=== PATIENT | female | born 1940 | race Caucasian/White ===

== ENCOUNTER 2016-08-03 04:27 | Observation (INO) | payer MEDICARE, BC ==
[~2016-08-03] VITALS: Ht 157.5 cm; Wt 88.2 kg
[2016-08-03] VITALS (7 sets, daily range): BP systolic 130–160; BP diastolic 66–80; PULSE 66–81; RESP 16–24; TEMP 95.9–97.7; O2SAT 96–99; Ht 157.5 cm; Wt 88.2 kg
[~2016-08-03 04:27] MED LIST: ASPI-611 PO; CALC600T86 PO; DILT180C52 PO; FA/M1TAB3 PO; METO50TA5 PO; NEOM10DR7 OT; NIAC500T22 PO; OMEG500C7 PO; SERT50TA12 PO; SIMV20TA6 PO; TRAM-277 PO; TRIA1TAB10 PO
--- OUTSIDE RECORDS SUMMARY | 2016-08-03 04:32 | XMS REPORT | Referral Summary ---
Author Author [facility], [facility] Medicine Organization [facility] Address Unknown Phone Unavailable Care Team Providers Care Nurse Emergency Room Name Role Phone Kierra Grover Primary Care Physician [phone] Encounter VC Date(s): 05/01/16 - 05/01/16 [facility] [address] [place] [id number] Discharge Diagnosis: Asthma Discharge Diagnosis: Gastroesophageal reflux disease (disorder) Discharge Diagnosis: Acute URI Discharge Diagnosis: Chronic kidney disease (CKD) Discharge Diagnosis: SBE (subacute bacterial endocarditis) Discharge Diagnosis: S/P total hip arthroplasty Discharge Disposition: 01-Home or Self Care Attending Physician: Heath Grover MD Admitting Physician: Heath Grover MD Vital Signs Most recent to 1 oldest [Reference Range]: Peripheral Pulse 67 bpm Rate [60-100 bpm] (05/01/16 2:58 PM) Blood Pressure 140/60 mmHg [90-140/60-90 mmHg] (05/01/16 2:58 PM) SpO2 94 % (05/01/16 2:58 PM) Problem List Condition Effective Dates Status Health Status Informant Allergic Active rhinitis(Confirmed) Asthma(Confirmed) Resolved Backache Active (finding)(Confirmed) Benign essential Active hypertension (disorder)(Confirmed ) Bronchitis(Confirmed Resolved )1 Chickenpox(Confirmed Resolved ) Chronic back Active pain(Confirmed) Chronic kidney Active disease (CKD)(Confirmed) Depression(Confirmed Active ) Diabetes(Confirmed) Active ECG Active abnormal(Confirmed) left ganglion cyst Resolved of wrist(Confirmed) Gastroesophageal Active reflux disease (disorder)(Confirmed ) Gastroesophageal Resolved reflux(Confirmed) GERD(Confirmed) Resolved Bright red blood per Active rectum(Confirmed) Hypercholesterolemia Active (Confirmed) Hypertension(Confirm Resolved ed) Hypertension(Confirm Resolved ed) Elevated blood Active sugar(Confirmed) Meniscus tear of Resolved knee, bilateral(Confirmed) OA (osteoarthritis) Active of knee(Confirmed) Osteoarthritis(Confi Resolved rmed)2 Preop cardiovascular Active exam(Confirmed) Seborrheic Active keratosis(Confirmed) 1not spec acute/chronic 2site unspecified Allergies, Adverse Reactions, Alerts Substance Reaction Severity Status homatropine Active HYDROcodone Active levofloxacin Active sulfamethoxazole Active Medications amoxicillin 500 mg oral tablet See Instructions, Take 6 tabs prior to dental procedure and 3 tabs 6 hours after procedure., # 30 caps, 0 Refill(s), Pharmacy: [facility] #[id number], Take 6 tabs prior to dental procedure and 3 tabs 6 hours after procedure. Start Date: 05/01/16 Status: Ordered aspirin 81 mg, Oral, Headache, 0 Refill(s) Start Date: 03/22/14 Status: Ordered calcium citrate 1 tabs, Oral, Daily, 0 Refill(s) Start Date: 10/25/13 Status: Ordered Cartia XT 180 mg/24 hours oral capsule, extended release 360 mg 2 caps, Oral, Daily, Please make a ked check appt. for full refill., # 60 caps, 0 Refill(s), Pharmacy: [facility] #[id number] Start Date: 04/20/16 Status: Ordered Contour Next Strips Contour Next Strips, See Instructions, Patient checks blood glucose fasting and 2 hours after a meal three to four times per week for icd-10 E11.9, # 100 Each, 3 Refill(s), Pharmacy: [facility] #[id number], Patient checks blood glucose fasting and 2... Start Date: 01/17/16 Status: Ordered Fish Oil 2 caps, Oral, Daily, 0 Refill(s) Start Date: 10/25/13 Status: Ordered Metoprolol Tartrate 50 mg oral tablet 50 mg 1 tabs, Oral, BID, # 180 tabs, 1 Refill(s), Pharmacy: [facility] # [id number], 1 tabs Oral BID Start Date: 05/01/16 Status: Ordered Microlet Lancets Microlet Lancets, See Instructions, USe to check blood glucose fasting and 2 hours after a meal three to four days per week for icd-10 E11.9, # 100 Each, 3 Refill(s), Pharmacy: [facility] #[id number], USe to check blood glucose fasting and 2 hours a... Start Date: 01/17/16 Status: Ordered multivitamin 1 tabs, Oral, Daily, 0 Refill(s) Start Date: 10/25/13 Status: Ordered sertraline 50 mg oral tablet See Instructions, TAKE ONE TABLET BY MOUTH DAILY, # 90 tabs, eRx: [facility] #[id number] Start Date: 04/27/16 Status: Ordered simvastatin 20 mg oral tablet See Instructions, TAKE ONE TABLET BY MOUTH AT BEDTIME, # 90 tabs, eRx: [facility] #[id number], TAKE ONE TABLET BY MOUTH AT BEDTIME Start Date: 02/24/16 Status: Ordered simvastatin 20 mg oral tablet See Instructions, TAKE ONE TABLET BY MOUTH EVERY NIGHT AT BEDTIME, # 90 tabs, 1 Refill(s), Pharmacy: [facility] #[id number], TAKE ONE TABLET BY MOUTH EVERY NIGHT AT BEDTIME Start Date: 08/22/15 Status: Ordered Singulair 10 mg oral tablet 10 mg 1 tabs, Oral, Daily, # 60 tabs, 0 Refill(s), Pharmacy: [facility] # [id number], 1 tabs Oral Daily Start Date: 05/01/16 Status: Ordered traMADol 50 mg oral tablet 50 mg 1 tabs, Oral, q6hr, as needed for pain, Beti Hanna, # 75 tabs, 0 Refill(s) Start Date: 04/08/16 Status: Ordered triamterene-hydrochlorothiazide 37.5 mg-25 mg oral tablet 1 tabs, Oral, Daily, Please make med check appt. for full refill., # 30 tabs, 0 Refill(s), Pharmacy: [facility] #[id number] Start Date: 04/20/16 Status: Ordered Results Hematology Most recent to 1 oldest [Reference Range]: WBC [4.8-10.8 7.7 10*3/uL 10*3/uL] (05/01/16 3:20 PM) RBC [4.00-5.20] 4.42 (05/01/16 3:20 PM) Hgb [12.0-16.0 14.5 gm/dL gm/dL] (05/01/16 3:20 PM) Hct [37.0-47.0 %] 44.7 % (05/01/16 3:20 PM) MCV [82.0-99.0 fL] 101.1 fL *HI* (05/01/16 3:20 PM) MCH [27.0-32.0 pg] 32.8 pg *HI* (05/01/16 3:20 PM) MCHC [32.0-36.0 32.4 gm/dL gm/dL] (05/01/16 3:20 PM) RDW [11.5-14.5 %] 12.1 % (05/01/16 3:20 PM) Platelet [150-400 269 10*3/uL 10*3/uL] (05/01/16 3:20 PM) MPV [8.8-14.8 fL] 10.5 fL (05/01/16 3:20 PM) Immature 0.3 % Granulocytes (05/01/16 3:20 PM) [0.0-1.0 %] Neutrophils [51-75 54 % %] (05/01/16 3:20 PM) Lymphocytes [20-46 28 % %] (05/01/16 3:20 PM) Monocytes [4-11 %] 16 % *HI* (05/01/16 3:20 PM) Eosinophils [0-4 %] 2 % (05/01/16 3:20 PM) Basophils [0-2 %] 1 % (05/01/16 3:20 PM) Neutro Absolute 4.14 [1.90-7.00] (05/01/16 3:20 PM) Lymph Absolute 2.17 [0.80-3.30] (05/01/16 3:20 PM) Lynn Absolute 1.20 [0.30-1.00] *HI* (05/01/16 3:20 PM) Eos Absolute 0.13 [0.00-0.50] (05/01/16 3:20 PM) Baso Absolute 0.04 [0.00-0.20] (05/01/16 3:20 PM) Chemistry Most recent to 1 oldest [Reference Range]: Sodium Lvl [135-144 141 mEq/L mEq/L] (05/01/16 3:20 PM) Potassium Lvl 4.0 mEq/L [3.5-5.2 mEq/L] (05/01/16 3:20 PM) Chloride [99-111 100 mEq/L mEq/L] (05/01/16 3:20 PM) CO2 [22-31 mEq/L] 30 mEq/L (05/01/16 3:20 PM) AGAP [3-20] 11 (05/01/16 3:20 PM) BUN [10-20 mg/dL] 24 mg/dL *HI* (05/01/16 3:20 PM) Glucose Lvl [70-99 112 mg/dL mg/dL] *HI* (05/01/16 3:20 PM) Creatinine Lvl 1.27 mg/dL [0.57-1.11 mg/dL] *HI* (05/01/16 3:20 PM) eGFR [>60 mL/min] 41 mL/min 1 *ABN* (05/01/16 3:20 PM) Calcium Lvl 10.0 mg/dL [8.9-10.5 mg/dL] (05/01/16 3:20 PM) Albumin Lvl [3.4-4.8 4.2 gm/dL gm/dL] (05/01/16 3:20 PM) Total Protein 6.7 gm/dL [6.0-7.6 gm/dL] (05/01/16 3:20 PM) Globulin [1.8-4.0 2.5 gm/dL gm/dL] (05/01/16 3:20 PM) ALT [0-55 U/L] 19 U/L (05/01/16 3:20 PM) AST [5-34 U/L] 16 U/L (05/01/16 3:20 PM) Alk Phos [40-150 28 U/L U/L] *LOW* (05/01/16 3:20 PM) Bili Total [0.2-1.2 0.5 mg/dL mg/dL] (05/01/16 3:20 PM) Chol [0-199 mg/dL] 174 mg/dL (05/01/16 3:20 PM) Trig [0-149 mg/dL] 219 mg/dL *HI* (05/01/16 3:20 PM) HDL [40-84 mg/dL] 60 mg/dL (05/01/16 3:20 PM) LDL [0-130 mg/dL] 70 mg/dL (05/01/16 3:20 PM) VLDL Cholesterol 44 mg/dL [0-28 mg/dL] *HI* (05/01/16 3:20 PM) Cardiac Risk 2.9 [0.0-5.0] (05/01/16 3:20 PM) TSH with Reflex Free 1.15 T4 [0.35-4.94] (05/01/16 3:20 PM) Hgb A1c [4.1-5.6 %] 6.1 % *HI* (05/01/16 3:20 PM) eAvg Glucose 128.4 mg/dL (05/01/16 3:20 PM) 1Result Comment: Multiply eGFR results by 1.21 for race. Urinalysis Most recent to 1 oldest [Reference Range]: UA Color Yellow (05/01/16 3:35 PM) UA Appear Clear (05/01/16 3:35 PM) UA pH [5.0-8.0] 8.0 (05/01/16 3:35 PM) UA Leuk Est Negative [Negative] (05/01/16 3:35 PM) UA Nitrite Negative [Negative] (05/01/16 3:35 PM) UA Protein Negative [Negative] (05/01/16 3:35 PM) UA Glucose Negative [Negative] (05/01/16 3:35 PM) UA Ketones Negative [Negative] (05/01/16 3:35 PM) UA Urobilinogen 1.0 mg/dL [<1.0 mg/dL] (05/01/16 3:35 PM) UA Bili [Negative] Negative (05/01/16 3:35 PM) UA Blood [Negative] Negative (05/01/16 3:35 PM) UA Spec Grav 1.014 [1.003-1.030] (05/01/16 3:35 PM) Type Voided (05/01/16 3:35 PM) Immunizations Given and Recorded Vaccine Date Status Refusal Reason tetanus/diphth/pertuss (Tdap) adult/adol1 05/20/15 Recorded influenza virus vaccine, inactivated 01/08/15 Recorded influenza virus vaccine, inactivated 01/16/11 Recorded influenza virus vaccine, inactivated 02/02/08 Recorded 1Location History: given at [facility] Procedures Procedure Date Related Diagnosis Body Site Colonoscopy1 04/14/07 Vaginal Pap smear 12/07/01 Hysterectomy2 04/05/86 Arthroscopy Dilation and curettage Excision of ganglion cyst Tonsillectomy 1Diverticulosis and polyp showing hyperplastic polyp. Plan repeart colonoscopy in 10 years (04/24/2017) 2vag hyst for fibroids Social History Social History Type Response Smoking Status Never smoker Assessment and Plan Extracted from: Title: Ambulatory Patient Education Author: Heath Grover MD Date: Allergy Asthma, Adult Asthma is a recurring condition in which the airways tighten and narrow. Asthma can make it difficult to breathe. It can cause coughing, wheezing, and shortness of breath. Asthma episodes, also called asthma attacks, range from minor to life-threatening. Asthma cannot be cured, but medicines and lifestyle changes can help control it. CAUSES Asthma is believed to be caused by inherited (genetic) and environmental factors , but its exact cause is unknown. Asthma may be triggered by allergens, lung infections, or irritants in the air. Asthma triggers are different for each person. Common triggers include: Animal dander. Dust mites. Cockroaches. Pollen from trees or grass. Mold. Smoke. Air pollutants such as dust, household retail department supervisor, hair sprays, aerosol sprays, paint fumes, strong chemicals, or strong odors. Cold air, weather changes, and winds (which increase molds and pollens in the air). Strong emotional expressions such as crying or laughing hard. Stress. Certain medicines (such as aspirin) or types of drugs (such as beta- blockers). Sulfites in foods and drinks. Foods and drinks that may contain sulfites include dried fruit, potato chips, and sparkling grape juice. Infections or inflammatory conditions such as the flu, a cold, or an inflammation of the nasal membranes (rhinitis). Gastroesophageal reflux disease (GERD). Exercise or strenuous activity. SYMPTOMS Symptoms may occur immediately after asthma is triggered or many hours later. Symptoms include: Wheezing. Excessive nighttime or pneumatic tool repairer coughing. Frequent or severe coughing with a common cold. Chest tightness. Shortness of breath. DIAGNOSIS The diagnosis of asthma is made by a review of your medical history and a physical exam. Tests may also be performed. These may include: Lung function studies. These tests show how much air you breathe in and out. Allergy tests. Imaging tests such as X-rays. TREATMENT Asthma cannot be cured, but it can usually be controlled. Treatment involves identifying and avoiding your asthma triggers. It also involves medicines. There are 2 classes of medicine used for asthma treatment: Controller medicines. These prevent asthma symptoms from occurring. They are usually taken every day. Reliever or rescue medicines. These quickly relieve asthma symptoms. They are used as needed and provide short-term relief. Your health care provider will help you create an asthma action plan. An asthma action plan is a written plan for managing and treating your asthma attacks. It includes a list of your asthma triggers and how they may be avoided. It also includes information on when medicines should be taken and when their dosage should be changed. An action plan may also involve the use of a device called a peak flow meter. A peak flow meter measures how well the lungs are working. It helps you monitor your condition. HOME CARE INSTRUCTIONS Take medicines only as directed by your health care provider. Speak with your health care provider if you have questions about how or when to take the medicines. Use a peak flow meter as directed by your health care provider. Record and keep track of readings. Understand and use the action plan to help minimize or stop an asthma attack without needing to seek medical care. Control your home environment in the following ways to help prevent asthma attacks: Do not smoke. Avoid being exposed to secondhand smoke. Change your heating and air conditioning filter regularly. Limit your use of fireplaces and wood stoves. Get rid of pests (such as roaches and mice) and their droppings. Throw away plants if you see mold on them. Clean your floors and dust regularly. Use unscented cleaning products. Try to have someone else vacuum for you regularly. Stay out of rooms while they are being vacuumed and for a short while afterward. If you vacuum, use a dust mask from a hardware store, a double-layered or microfilter vacuum hand rug cleaner bag, or a vacuum hand rug cleaner with a HEPA filter. Replace carpet with wood, tile, or vinyl bel. Carpet can trap dander and dust. Use allergy-proof pillows, mattress covers, and box spring covers. Wash bed sheets and blankets every week in hot water and dry them in a dryer. Use blankets that are made of polyester or cotton. Clean bathrooms and ratna with bleach. If possible, have someone repaint the kwon in these rooms with mold-resistant paint. Keep out of the rooms that are being cleaned and painted. Wash hands frequently. SEEK MEDICAL CARE IF: You have wheezing, shortness of breath, or a cough even if taking medicine to prevent attacks. The colored mucus you cough up (sputum) is thicker than usual. Your sputum changes from clear or white to yellow, green, blanco, or bloody. You have any problems that may be related to the medicines you are taking (such as a rash, itching, swelling, or trouble breathing). You are using a reliever medicine more than 23 times per week. Your peak flow is still at 5079% of your personal best after following your action plan for 1 hour. You have a fever. SEEK IMMEDIATE MEDICAL CARE IF: You seem to be getting worse and are unresponsive to treatment during an asthma attack. You are short of breath even at rest. You get short of breath when doing very little physical activity. You have difficulty eating, drinking, or talking due to asthma symptoms. You develop chest pain. You develop a fast heartbeat. You have a bluish color to your lips or fingernails. You are light-headed, dizzy, or faint. Your peak flow is less than 50% of your personal best. MAKE SURE YOU: Understand these instructions. Will watch your condition. Will get help right away if you are not doing well or get worse. This information is not intended to replace advice given to you by your health care provider. Make sure you discuss any questions you have with your health care provider. Document Released: 03/22/2006 Document Revised: 04/12/2015 Document Reviewed: [employer] Interactive Patient Education 2016 [employer] No follow up information was provided. Extracted from: Title: Office Visit Note Author: Heath Grover MD Date: 05/01/16 Assessment/Plan Acute URI Amox 500mg po tid forfive days for uri. Asthma This issue was reviewed, appears stable, and current therapy continued except as mentioned. Appropriate lab was reviewed from the most recent appropriate entry and lab was ordered if needed in the cpoe/nursing orders, and follow up recommended generally in 90 days and no later then six months. Trial of singulair 10mg po daily. Call report. The patient has family members present who are agreeable with today's plan and have no additional concerns or requests. here. Chronic kidney disease (CKD) This issue was reviewed, appears stable, and current therapy continued except as mentioned. Appropriate lab was reviewed from the most recent appropriate entry and lab was ordered if needed in the cpoe/nursing orders, and follow up recommended generally in 90 days and no later then six months. Lab pending. Diabetes The patient was notified for the need for regular quarterly f/u of their diabetes. Further any pertinent medication, supplies, etc were refilled. Additionally, they are to have annual eye exams, foot exams, and regular care. Lab pending. Ordered: Hemoglobin A1c TSH with Reflex Free T4 Gastroesophageal reflux disease (disorder) This issue was reviewed, appears stable, and current therapy continued except as mentioned. Appropriate lab was reviewed from the most recent appropriate entry and lab was ordered if needed in the cpoe/nursing orders, and follow up recommended generally in 90 days and no later then six months. High cholesterol This issue was reviewed, appears stable, and current therapy continued except as mentioned. Appropriate lab was reviewed from the most recent appropriate entry and lab was ordered if needed in the cpoe/nursing orders, and follow up recommended generally in 90 days and no later then six months. Lab pending. Ordered: Lipid Panel HTN (hypertension) This issue was reviewed, appears stable, and current therapy continued except as mentioned. Appropriate lab was reviewed from the most recent appropriate entry and lab was ordered if needed in the cpoe/nursing orders, and follow up recommended generally in 90 days and no later then six months. The patient reports their blood pressure has been stable at home and is not having any significant or related problems. There has been no chest pain, chest pressure, soa/rivas. The patient had an elevated blood pressure reading and is to monitor their bp and call with a report if consistently > 140/90. Ordered: CBC w/ Differential Comprehensive Metabolic Panel Urinalysis with Culture if Indicated S/P total hip arthroplasty The patient's issue is nearly or completely resolved. There is no further issues or testing desired by them at this time. Amox 500mg po tid for five days. Will start one day prior to appt. Other options discussed but she is taking it for her URI already and wanted to use it through her dental appt. SBE (subacute bacterial endocarditis) See above. Normally Amox 500mg six tabs one hour before and three tabs six hours after dental visit.
--- OUTSIDE RECORDS SUMMARY | 2016-08-03 04:32 | XMS REPORT | Continuity of Care Document ---
Author Author [facility] Organization [facility] Address Unknown Phone Unavailable Care Team Providers Care Trial Lawyer Name Role Phone CLAUDE GILMORE MD Primary Care Physician [phone] Insurance Providers Guarantor Antoinette Calloway Address [address] [place] [address] CP Email [email or web address] Payer [employer] Plan 65 Policy Number [id number] Subscriber's Name Antoinette Calloway Relationship 18 Self Group Number [id number] Effective Date 11 Payer Medicare Policy Number [id number] Subscriber's Name Antoinette Calloway Relationship 18 Self Effective Date 05 Chief Complaint and Reason for Visit Chief Complaint Ear Pain/Injury Reason for Visit [id number] Problems Active Problems Medical Problem Onset Date Status Fibula fracture Unknown Acute Fibula fracture Unknown Acute Impacted cerumen, bilateral Unknown Acute Past Problems Medical Problem Onset Date Excessive cerumen in both ear canals Unknown Influenza vaccine administered Unknown Medications Current Home Medications Medication Dose Units Route Directions Days Qty Instructions Start Date Aspirin 81 Mg Tablet 81 Mg Oral Daily 05/07/09 Calcium Carbonate (Calcium) 600 Mg Tablet 1,200 Mg Oral Daily 05/15 Diltiazem Hcl (Cartia Xt) 180 Mg Cap.sr.24h 360 Mg Oral Daily 27/02 Fa/Mv,Ca,Fe,Min/Lycopene/Lut (Centrum Tablet) 1 Tab Tablet 1 Tab Oral Daily 05/07/09 Metoprolol Tartrate 50 Mg Tablet 50 Mg Oral Twice A Day 05/20/15 Neomycin/Polymyxin B Sulf/Hc (Ctjcqemv-Ltrnunyck-Dp Ear Susp) 10 Ml Drops.susp 4 Drop Otic Three Times A Day 7 Days [address] Avery Castrejon [facility] [address] [facility] [phone] 02/26/16 Niacinamide (Niacin) 500 Mg Tablet 500 Mg Oral Bedtime 05/20/15 [place]-3 Fatty Acids (Fish Oil) Unknown Strength Capsule Unknown Dose Oral Daily 05/20/15 Sertraline Hcl (Sertraline) 50 Mg Tablet 50 Mg Oral Daily Simvastatin 20 Mg Tablet 20 Mg Oral Bedtime 05/20/15 Tramadol Hcl 50 Mg Tablet 50 Mg Oral Twice A Day as needed for Pain 05/29/10 Triamterene/Hydrochlorothiazid (Triamterene-Hctz 37.5-25 Tb) 1 Tab Tablet 1 Tab Oral Daily 05/07/09 Past Home Medications Medication Directions Ordered Status Diltiazem Hcl (Taztia Xt) 360 Mg Capsule.sa, 360 Mg Oral Daily 05/07/09 Discontinued Multivits W-Fe,Other Min (Centrum) 236 Ml Liquid, 236 Ml Oral 05/07/09 Discontinued Social History Social History Problem Response Recorded Date/Time Onset Date Status Hx Substance Use No 05/20/2015 4:00pm Not Applicable Not Applicable Hx Alcohol Use No 05/20/2015 4:00pm Not Applicable Not Applicable Tobacco Usage none 05/20/2015 6:34pm Not Applicable Not Applicable Hospital Discharge Instructions No hospital discharge instructions. Plan of Care Discharge Date 03/06/16 4:30pm Disposition 01 DISCHARGED HOME, SELF-CARE Condition at Discharge Stable Instructions/Education Provided DI for Cerumen Impaction Prescriptions See Medication Section Referrals CLAUDE GILMORE MD Address: [address] [place] [address] [place] [phone] Additional Instructions/Education You may occasionally use Debrox or Cerumenex to soften and keep cerumen from obstructing ear canals. Functional Status No functional status results. Allergies, Adverse Reactions, Alerts Allergen Type Severity Reaction Status Last Updated benazepril HCl Adverse Reaction Intermediate SHAKINESS/ FEELS COLD Active 03/06/16 Sulfa (Sulfonamide Antibiotics) Allergy Unknown Active 03/06/16 Hydrocodone Allergy Unknown Active 03/06/16 Levofloxacin Adverse Reaction Intermediate SHAKINESS /FEELS COLD Active Immunizations Query Response on File Recorded Date/Time Hx Influenza Vaccination Y January 09, 2013 01/31/13 4:45pm Hx Pneumococcal Vaccination No 01/31/13 4:45pm Hx Influenza Vaccination Y January 09, 2013 01/31/13 4:45pm DTaP Vaccine History yes 03/06/16 4:13pm Influenza Vaccine Hx Yes 01/1803/06/16 4:13pm Tetanus Diptheria Vaccine History yes 03/06/16 4:13pm Tdap Vaccine Hx 05/20/15 05/20/15 7:13pm Vital Signs Acute Vital Signs Vital Response Date/Time Temperature (Fahrenheit) 98.2 deg F (96.8 - 99.1) 03/06/2016 4:11pm Temperature (Calculated Celsius) 36.16474 degrees C (36.0 - 37.3) 03/06/2016 4:11pm Pulse Rate (adult) 65 bpm (60 - 100) 03/06/2016 4:11pm Respiratory Rate 24 breaths/min (10 - 20) 02/26/2016 3:44pm O2 Sat by Pulse Oximetry 95 % (90 - 100) 03/06/2016 4:11pm Blood Pressure 129/60 mm Hg 03/06/2016 4:11pm Height (Feet) 5 feet 03/06/2016 4:11pm Height (Inches) 3.00 inches 03/06/2016 4:11pm Weight (Kilograms) 92.200 kg 03/06/2016 4:11pm Body Mass Index (BMI) 36.0 03/06/2016 4:11pm Results No known relevant diagnostic tests, laboratory data and/or discharge summary. Procedures No known history of procedures. Encounters Encounter Location Arrival/Admit Date Discharge/Depart Date Attending Provider Registered Emergency Room [facility] 03/06/16 4:05pm ERIC LARA APRN Registered Clinic [facility] 03/06/16 2:42pm [facility] Departed Emergency Room [facility] 02/26/16 3:29pm 02/26/16 4: 48pm ERIC LARA APRN Departed Emergency Room [facility] 02/04/16 4:13pm 02/04/16 4: 24pm RADHAMES MACE APRN Recent Diagnosis
--- OUTSIDE RECORDS SUMMARY | 2016-08-03 04:33 | XMS REPORT | Continuity of Care Document ---
Author Author [facility] Organization [facility] Address Unknown Phone Unavailable Allergies Medications Problems Procedures Results Encounters ACCT No. Visit Date/Time Discharge Status Pt. Type Provider Facility Loc./Unit Complaint [id number] 01/24/2013 09:21:00 01/24/2013 23 :59:59 CLS Outpatient
--- NOTE | 2016-08-03 04:40 | NUR ---
DR HALL AT BEDSIDE TO SEE PT.
[2016-08-03] MEDS ORDERED: NORMAL SALINE 1,000 ML IV ONE (04:52)
[2016-08-03 05:01] LABS: BASOPHILS % (AUTO) 0.2 % (0-2); EOSINOPHILS % (AUTO) 0.1 % (0-4); HCT - HEMATOCRIT 47.2 % (36-46); HGB - HEMOGLOBIN 16.2 GM/DL (12-16); IMMATURE GRANULOCYTE # (AUTO) 0.02 T/MM3 (0.00-0.03); IMMATURE GRANULOCYTE % (AUTO) 0.2 % (0.0-0.5); LYMPHOCYTES # (AUTO) 1.3 T/MM3 (1-4.8); LYMPHOCYTES % (AUTO) 14.6 % (23-45); MEAN CORPUSCULAR HGB 33.5 UUG (26-34); MEAN CORPUSCULAR HGB CONC(MCHC 34.3 GM/DL (31-37); MEAN CORPUSCULAR VOLUME 97.5 UM3 (80-100); MEAN PLATELET VOLUME 10.9 UM3 (9.4-12.4); MONOCYTES # (AUTO) 0.8 T/MM3 (0-0.8); MONOCYTES % (AUTO) 8.9 % (0-9.0); NEUTROPHILS #(AUTO)-ABSOLUTE 6.9 T/MM3 (1.8-7.7); RED BLOOD COUNT 4.84 M/MM3 (4.00-5.20); WBC - WHITE BLOOD COUNT 9.1 T/MM3 (4.5-11.0)
--- NOTE | 2016-08-03 05:03 | NUR ---
IVL STARTED BY MIKAYLA VERDUGO IN FIRST ATTEMPT TO RIGHT HAND. BLOOD DRAWN FROM SITE AND TAKEN TO LAB.
--- NOTE | 2016-08-03 05:06 | ERPDOC ---
Departure Disposition Decision Date: August 03, 2016 Disposition Decision Time: 06:14 Disposition: 01 DISCHARGED HOME, SELF-CARE Impression Impression Impression: Primary Impression: GI bleed Severity: Moderate Condition: Stable Seen By: Physician only Referrals: CLAUDE GILMORE MD (PCP/Family) Problems/Meds/Labs Reviewed?: Yes Medications reviewed and manag: Yes Follow up care ordered?: Yes Mental Status: Alert HPI - Abdominal Pain General Chief Complaint: Nausea,Vomiting,Diarrhea Stated Complaint: DIRARRHEA Time Seen by Provider: 04:50 HPI - Abdominal Pain Initial Comments 76-year-old female presents with diarrhea for 2 days. She went out to eat with her Wednesday evening. They both had the same meal, but she began having diarrhea at approximately 3:30 AM the next morning. He has not been ill at all. She did throw up once with the first episode of diarrhea, but has not vomited since that time. She states she's been having diarrhea approximately every 2 hours. No fever. She has been becoming more weak and fatigued the last two days. She became winded just walking back to the room. Allergies: Coded Allergies: Sulfa (Sulfonamide Antibiotics) (Verified Allergy, Unknown, 08/03/16) hydrocodone (Verified Allergy, Unknown, 08/03/16) benazepril HCl (Verified Adverse Reaction, Intermediate, SHAKINESS/ FEELS COLD, 08/03/16) levofloxacin (Verified Adverse Reaction, Intermediate, SHAKINESS /FEELS COLD, 08/03/16) Past History Past Medical History Metabolic: hypertension Psychological: depression Surgical History General: tonsils Reproductive/: D&C, hysterectomy Joint: knee Family History Family PMH: FOUND: asthma, diabetes Vaccines Hx Influenza Vaccination: Yes (January 09, 2013) Hx Pneumococcal Vaccination: No Social History Smoking Status: Never smoker Substance Use Type: does not use Alcohol Intake: none Record Review Pertinent history updated: Yes Review of Systems Cardiovascular Cardiac: see HPI Pulmonary Respiratory: see HPI GI Upper Abdomen: see HPI General: see HPI Musculoskeletal General: see HPI Physical Exam General General Nourishment: appears stated age, adult, obese Distress Description Shortness of breath, Vitals and Pain First Documented Vital Signs Date Time Temp Pulse Resp B/P Pulse Ox O2 Delivery O2 Flow Rate FiO2 08/03/16 04:28 96.9 98 20 136/68 96 Room Air Weight: Kilograms: Height (feet): 5 Height (inches): 3.00 Triage Pain Scale: Normal Exams: Head: Normocephalic w/o trauma Eyes: Pupils are PERRLA w/ EOMI, No scleral icterus, irritation, or foreign bodies noted Chest/Resp: Clear all land, with good airflow, and symmetry bilaterally CV: Regular rate and rhythm, without murmur or gallop, Pulses 2+ all extremities, capillary refill, <2 seconds all ext., no pedal edema noted Abdomen: Bowel sounds positive, soft, non-tender, non-distended, no hepatosplenomegaly, masses or bruits noted Neurologic: Patient is alert, and oriented, cranial nerves, motor/sensory/ cerebellar, exams w/o gross deficits, to observation Psychiatric: Patient exhibits, appropriate attention, emotion and affect Differential Diagnoses Considering: C-Difficule Colitis, Diverticulitis, Food Poisoning, Gastroenteritis, Intussusception, Ischemic Bowel, Pancreatitis, Rotavirus, Cecal Volvulus Progress Results/Orders Orders Procedure Category Date Status Time Cmp - Comprehensive LAB 08/03/16 Complete Metabolic 04:52 Cbc W/Auto LAB 08/03/16 Complete Diff-Reflex Manual 04:52 Lipase LAB 08/03/16 Complete 04:52 Ua, Dip Wreflex LAB 08/03/16 Logged Microsc & Nurse Chemical Dependency 04:52 Occult Blood, Stool LAB 08/03/16 Complete 04:52 Gi Panel, Pcr, Stool LAB 08/03/16 In Process 04:52 Kub W/Upright RAD 08/03/16 Taken 04:52 Iv Lock (Ed Only) EDM 08/03/16 Transmitted 04:52 Normal Saline (Normal PHA 08/03/16 Complete Saline Iv) 04:52 Ed Infections EDM 08/03/16 Transmitted Precautions 04:52 Troponin I W LAB 08/03/16 In Process Hemolysis Index EKG EKG 08/03/16 Logged Diltiazem Cd PHA 08/03/16 Logged (Cardizem Cd) 09:00 Metoprolol Tartrate PHA 08/03/16 Logged (Lopressor) 09:00 Lab Results Laboratory Tests Test 08/03/16 04:52 08/03/16 05:08 08/03/16 05:10 White Blood Count 9.1T/MM3 Red Blood Count 4.84M/MM3 Hemoglobin 16.2GM/DL Hematocrit 47.2% Mean Corpuscular Volume 97.5UM3 Mean Corpuscular Hemoglobin 33.5UUG Mean Corpuscular Hemoglobin Concent 34.3GM/DL RDW Standard Deviation 44.1FL Platelet Count 175T/MM3 Mean Platelet Volume 10.9UM3 Immature Granulocyte % (Auto) 0.2% Neutrophils (%) (Auto) 76.0% Lymphocytes (%) (Auto) 14.6% Monocytes (%) (Auto) 8.9% Eosinophils (%) (Auto) 0.1% Basophils (%) (Auto) 0.2% Absolute Immature Granulocyte (auto 0.02T/MM3 Absolute Neutrophils (auto) 6.9T/MM3 Absolute Lymphocytes (auto) 1.3T/MM3 Absolute Monocytes (auto) 0.8T/MM3 Absolute Eosinophils (auto) 0.0T/MM3 Absolute Basophils (auto) 0.0T/MM3 Turbidity < 20 Sodium Level 139MEQ/L Potassium Level 3.2MEQ/L Chloride Level 100MEQ/L Carbon Dioxide Level 19MEQ/L Anion Gap 20MEQ/L Blood Urea Nitrogen 22.0MG/DL Creatinine 1.2MG/DL Glomerular Filtration Rate Calc 44 BUN/Creatinine Ratio 18RATIO Glucose Level 143MG/DL Calculated Osmolality 273MOSM/KG Calcium Level 9.9MG/DL Total Bilirubin 0.70MG/DL Icterus Index < 2 Aspartate Amino Transf (AST/SGOT) 36U/L Alanine Aminotransferase (ALT/SGPT) 51U/L Alkaline Phosphatase 36U/L Troponin I Pending Total Protein 8.1G/DL Albumin 4.4G/DL Globulin 3.7G/DL Albumin/Globulin Ratio 1.2RATIO Lipase 176U/L Chemistry Specimen Hemolysis Pending Stool Occult Blood Positive Stool Cyclospora species Detection Pending Stool Rotavirus A PCR Pending Stool Adenovirus (PCR) Pending Stool Astrovirus (PCR) Pending Stool Campylobacter PCR Pending Stool C. difficile Toxin (PCR) Pending Stool Cryptosporidium PCR Pending Stool E. coli Shiga Toxins Pending Stool E coli O157 PCR Pending Stool Enterotoxigenic Ecoli PCR Pending Stool Enteropathogenic E. coli (PCR Pending Stool Enteroaggregative E. coli PCR Pending Stool Entamoeba (PCR) Pending Stool Giardia Lamblia PCR Pending Stool Salmonella PCR Pending Stool Sapovirus (PCR) Pending Stool Plesiomonas shigelloides PCR Pending Stool Shigella/EIEC (PCR) Pending Stool Yersinia enterocolitica (PCR) Pending Stool Vibrio (PCR) Pending Stool Vibrio cholera (PCR) Pending Stool Norovirus GI/GII PCR Pending Medications Current ED Medications Sodium Chloride (Normal Saline IV) 1,000 ml @ 1,000 mls/hr Q1H ONCE IV Last administered on 08/03/16t 05:18; Start 08/03/16 at 04:52; Stop 08/03/16 at 05:51; Status DC Diltiazem HCl (Cardizem Cd) 360 mg DAILY PO ; Start 08/03/16 at 09:00; Status UNV Metoprolol Tartrate (Lopressor) 50 mg BID PO ; Start 08/03/16 at 09:00; Status UNV Progress Progress Pt has hct which is slightly elevated but also has guiac positive stool. She becomes so easily winded and has elevated pulse. I expect that hct will drop as pt is hydrated. She will need follow up hct and ivf to rehydrate. Spoke with Dr Cowan who agreed to admit her to obs for hydration and follow. PARAS HALL MD August 03, 2016 05:06
[2016-08-03 05:08] LABS: ALBUMIN 4.4 G/DL (3.5-5.0); ALBUMIN/GLOBULIN RATIO 1.2 RATIO (1.1-2.2); ALKALINE PHOSPHATASE 36 U/L (38-126); ALT (SGPT) 51 U/L (9-52); ANION GAP 20 MEQ/L (5-15); AST (SGOT) 36 U/L (14-36); BUN/CREATININE RATIO 18 RATIO (6-26); CALCIUM 9.9 MG/DL (8.4-10.2); CHLORIDE 100 MEQ/L (98-107); CO2 - CARBON DIOXIDE 19 MEQ/L (22-30); CREATININE 1.2 MG/DL (0.7-1.2); GLOMERULAR FILTRATION RATE 44; GLUCOSE 143 MG/DL (65-110); LIPASE 176 U/L (23-300); POTASSIUM 3.2 MEQ/L (3.6-5); SODIUM 139 MEQ/L (134-144); TOTAL PROTEIN 8.1 G/DL (6.3-8.2)
--- NOTE | 2016-08-03 05:10 | NUR ---
BATHROOM PT ASSISTED TO BATHROOM FOR BM. STOOL SAMPLE COLLECTED AND TAKEN TO LAB.
[2016-08-03] MEDS ORDERED: MONTELUKAST (05:12)
[2016-08-03] MEDS ORDERED: FISH OIL (05:12)
--- OUTSIDE RECORDS SUMMARY | 2016-08-03 05:18 | XMS REPORT | Continuity of Care Document ---
Author Author [facility] Organization [facility] Address Unknown Phone Unavailable Allergies Medications Problems Procedures Results Encounters ACCT No. Visit Date/Time Discharge Status Pt. Type Provider Facility Loc./Unit Complaint [id number] 01/24/2013 09:21:00 01/24/2013 23 :59:59 CLS Outpatient
--- NOTE | 2016-08-03 05:30 | NUR ---
XRY PT TO XRY AT THIS TIME.
--- NOTE | 2016-08-03 05:40 | NUR ---
RETURN PT RETURNS TO EX 2 FROM RAD.
--- NOTE | 2016-08-03 06:05 | NUR ---
TELE HOSPITALIST ON TALKING WITH PT AT THIS TIME.
--- OUTSIDE RECORDS SUMMARY | 2016-08-03 06:10 | XMS REPORT | Continuity of Care Document ---
Author Author [facility] Organization [facility] Address Unknown Phone Unavailable Allergies Medications Problems Procedures Results Encounters ACCT No. Visit Date/Time Discharge Status Pt. Type Provider Facility Loc./Unit Complaint [id number] 01/24/2013 09:21:00 01/24/2013 23 :59:59 CLS Outpatient
[2016-08-03] MEDS ORDERED: ONDANSETRON 4mg/2ml INJECTION IV PRN (06:15)
--- NOTE | 2016-08-03 06:21 | NUR ---
REPORT CALLED TO MIKAYLA SEWELL ON MEDICAL. PT GOING TO RM 140.
--- NOTE | 2016-08-03 06:23 | NUR ---
ADMIT PT WILL BE TAKEN OUT TO RM 140 IN APPROX 10 MINUTES. CARE SIGNED OFF AT THIS TIME.
--- NOTE | 2016-08-03 06:31 | HPPDOC ---
DWIGHT MOREL MD 08/03/16 0624: HPI - Adult Date DATE: 08/03/16 TIME: 06:20 General Chief Complaint: diarrhea and weakness History of Present Illness Please note that the patient was seen via telemedicine with nursing assistance on 08/03/2016. Mrs. Sandhu is a very pleasant 76yo woman with h/o HTN, DM2 diet controlled, dyslipidemia, hyst, but no CAD or CVAs who lives independently with her and had onset of diarrheal illness 07/31/2016. Emesis once with stools q2 hours with dark stool now but also took some pepto bismol and has a h/o hemorrhoids. Abd pain, crampy, with improved somewhat now. No fevers or chills, but progressively weak and cannot effectively walk with nearly passing out in the ED. has eaten the same things. No recent medication changes or antibiotics. No ENT symptoms, sob or cough. Past Medical History Past Medical History Patient's Medical History: (1) HTN (hypertension) (2) DM2 (diabetes mellitus, type 2) (3) Dyslipidemia Surgical History Patient's Surgical History: hyst Current Medications Home Meds Reported Medications [Montelukast] No Conflict Check 08/03/16 [Fish Oil] No Conflict Check 08/03/16 Franklin-3 Fatty Acids (Fish Oil) Unknown Strength Capsule, PO DAILY 05/20/15 Niacinamide (Niacin) 500 Mg Tablet, 500 MG PO HS 05/20/15 Simvastatin (Simvastatin) 20 Mg Tablet, 20 MG PO HS 05/20/15 Sertraline (Sertraline) 50 Mg Tablet, 50 MG PO DAILY 05/20/15 Metoprolol Tartrate (Metoprolol Tartrate) 50 Mg Tablet, 50 MG PO BID 05/20/15 Diltiazem Hcl (Cartia Xt) 180 Mg Cap.sr.24h, 360 MG PO DAILY 05/30/10 Tramadol Hcl (Tramadol Hcl) 50 Mg Tablet, 50 MG PO BID Y for PAIN 05/29/10 Fa/Mv,Ca,Fe,Min/Lycopene/Lut (Centrum Tablet) 1 Tab Tablet, 1 TAB PO DAILY 05/07/09 Calcium Carbonate (Calcium) 600 Mg Tablet, 1200 MG PO DAILY 05/07/09 Aspirin (Aspirin) 81 Mg Tablet, 81 MG PO DAILY 05/07/09 Triamterene/Hydrochlorothiazid (Triamterene-Hctz 37.5-25 Tb) 1 Tab Tablet, 1 TAB PO DAILY 05/07/09 Discontinued Scripts Neomycin/Polymyxin B Sulf/Hc (Tqmqjbui-Uxgmodgip-Cn Ear Susp) 10 Ml Drops.susp, 4 DROP OT TID for 7 Days, #10 ML [address] Avery Castrejon [employer]st [facility] [address] [place] [address] Prov:ERIC LARA [employer] DIRECTOR 02/26/16 Allergies: Coded Allergies: Sulfa (Sulfonamide Antibiotics) (Verified Allergy, Unknown, 08/03/16) hydrocodone (Verified Allergy, Unknown, 08/03/16) benazepril HCl (Verified Adverse Reaction, Intermediate, SHAKINESS/ FEELS COLD, 08/03/16) levofloxacin (Verified Adverse Reaction, Intermediate, SHAKINESS /FEELS COLD, 08/03/16) Family History Family History: ather of CVA, mother at 95 with old age/?PNA Social History Smoking Status: Never smoker Substance Use Type: does not use Alcohol Intake: none Marital Status: Sexuality: male partner Housing: house Current Occupational Status: retired Advance Directives: Yes Full Code Review of Systems Unable to Obtain Comments 10+ neg or as mentioned in HPI Physical Exam General General Nourishment: well nourished, obese, apparent age General Body Habitus: well groomed Vital Signs Vital Signs Date Time Temp Pulse Resp B/P Pulse Ox O2 Delivery O2 Flow Rate FiO2 08/03/16 06:19 90 18 149/68 100 Room Air 08/03/16 04:28 96.9 Height (Feet): 5 Height (Inches): 3.00 Telemetry Rhythm: Sinus Rhythm Eyes Brief: FOUND: EOMI Respiratory Brief: FOUND: equal bilaterally, NOT FOUND: wheezes Cardiovascular (brief) Cardiac Brief: FOUND: regular rate, regular rhythm, NOT FOUND: pedal edema Capillary Refill: <2 sec Abdomen (brief) Comments NT, hyperactive BS and soft. See ED staff note as well. Integumentary (brief) Integumentary Brief: FOUND: pink Neurologic (brief) Comments nonfocal with no lateralizing signs Neurologic RN Documented GCS Eye Opening: Verbal: Motor: Total: Psychiatric (brief) FOUND: alert, normal affect, oriented Laboratory Laboratory Tests Test 08/03/16 04:52 08/03/16 05:08 08/03/16 05:10 White Blood Count 9.1T/MM3 Red Blood Count 4.84M/MM3 Hemoglobin 16.2GM/DL Hematocrit 47.2% Mean Corpuscular Volume 97.5UM3 Mean Corpuscular Hemoglobin 33.5UUG Mean Corpuscular Hemoglobin Concent 34.3GM/DL RDW Standard Deviation 44.1FL Platelet Count 175T/MM3 Mean Platelet Volume 10.9UM3 Immature Granulocyte % (Auto) 0.2% Neutrophils (%) (Auto) 76.0% Lymphocytes (%) (Auto) 14.6% Monocytes (%) (Auto) 8.9% Eosinophils (%) (Auto) 0.1% Basophils (%) (Auto) 0.2% Absolute Immature Granulocyte (auto 0.02T/MM3 Absolute Neutrophils (auto) 6.9T/MM3 Absolute Lymphocytes (auto) 1.3T/MM3 Absolute Monocytes (auto) 0.8T/MM3 Absolute Eosinophils (auto) 0.0T/MM3 Absolute Basophils (auto) 0.0T/MM3 Turbidity < 20 Sodium Level 139MEQ/L Potassium Level 3.2MEQ/L Chloride Level 100MEQ/L Carbon Dioxide Level 19MEQ/L Anion Gap 20MEQ/L Blood Urea Nitrogen 22.0MG/DL Creatinine 1.2MG/DL Glomerular Filtration Rate Calc 44 BUN/Creatinine Ratio 18RATIO Glucose Level 143MG/DL Calculated Osmolality 273MOSM/KG Calcium Level 9.9MG/DL Total Bilirubin 0.70MG/DL Icterus Index < 2 Aspartate Amino Transf (AST/SGOT) 36U/L Alanine Aminotransferase (ALT/SGPT) 51U/L Alkaline Phosphatase 36U/L Troponin I < 0.012ng/ml Total Protein 8.1G/DL Albumin 4.4G/DL Globulin 3.7G/DL Albumin/Globulin Ratio 1.2RATIO Lipase 176U/L Chemistry Specimen Hemolysis < 15 Stool Occult Blood Positive Assessment & Plan Problems: (1) Diarrhea Status: Acute Qualifiers: Diarrhea type: infectious Qualified Codes: A09 - Infectious gastroenteritis and colitis, unspecified Assessment & Plan: full admission and start Rocephin as flouroquinolone allergy. Concern for Salmonella et all with stool studies and probiotic start. Agressive IVF and check labs again at 1100 with lactate. Clear liquids only. (2) Heme positive stool Assessment & Plan: BUN elevated but prerenal. PPI and montitor with hgb at 1100. Hemorrhoids et al. (3) Hypokalemia Status: Acute Assessment & Plan: IV supp (4) Obesity (5) DM2 (diabetes mellitus, type 2) Status: Chronic (6) HTN (hypertension) Status: Chronic Assessment & Plan: hold diuretic and continue other (7) Dyslipidemia Status: Chronic Assessment & Plan: This patient is to be admitted to inpatient services. The patient is medically appropriate and meets medical necessity for inpatient admission in accordance with CMS section 42 C.F.R 412.3. The patient is reasonable expected to be discharged or transferred to a hospital within 96 hours after inpatient admission. I reasonable expect the patient will require inpatient services that span a period of time over two midnights. My rationale for determining inpatient admission necessary is noted below. Additional documentation will be found in the progress note. Treatment plan required inpatient setting; care in an outpatient setting would have threatened the patient's safety or health. Treatment plan required clinical-monitoring, treatments, medications and procedures that required an inpatient setting. Unstable medical condition: clinical signs and symptoms present that were significantly above or below those of normal range for the patient, and were such that further monitoring and evaluation was medically necessary. DVT Prophylaxis: SCD'S Code Status Full Code Hospital Course Summary Disclaimer The hospital course summary below is not to be considered part of the above Progress Note. CAROLE STAUFFER MD 08/03/16 0835: Past Medical History Current Medications Home Meds Reported Medications [Montelukast] No Conflict Check 08/03/16 [Fish Oil] No Conflict Check 08/03/16 Franklin-3 Fatty Acids (Fish Oil) Unknown Strength Capsule, PO DAILY 05/20/15 Niacinamide (Niacin) 500 Mg Tablet, 500 MG PO HS 05/20/15 Simvastatin (Simvastatin) 20 Mg Tablet, 20 MG PO HS 05/20/15 Sertraline (Sertraline) 50 Mg Tablet, 50 MG PO DAILY 05/20/15 Metoprolol Tartrate (Metoprolol Tartrate) 50 Mg Tablet, 50 MG PO BID 05/20/15 Diltiazem Hcl (Cartia Xt) 180 Mg Cap.sr.24h, 360 MG PO DAILY 05/30/10 Tramadol Hcl (Tramadol Hcl) 50 Mg Tablet, 50 MG PO BID Y for PAIN 05/29/10 Fa/Mv,Ca,Fe,Min/Lycopene/Lut (Centrum Tablet) 1 Tab Tablet, 1 TAB PO DAILY 05/07/09 Calcium Carbonate (Calcium) 600 Mg Tablet, 1200 MG PO DAILY 05/07/09 Aspirin (Aspirin) 81 Mg Tablet, 81 MG PO DAILY 05/07/09 Triamterene/Hydrochlorothiazid (Triamterene-Hctz 37.5-25 Tb) 1 Tab Tablet, 1 TAB PO DAILY 05/07/09 Discontinued Scripts Neomycin/Polymyxin B Sulf/Hc (Nckkqrgb-Vnvkcnslq-Hc Ear Susp) 10 Ml Drops.susp, 4 DROP OT TID for 7 Days, #10 ML [address] Avery Castrejon [employer] Analyst [facility] [address] [facility] [phone] Prov:ERIC LARA [employer] DIRECTOR 02/26/16 Allergies: Coded Allergies: Sulfa (Sulfonamide Antibiotics) (Verified Allergy, Unknown, 08/03/16) hydrocodone (Verified Allergy, Unknown, 08/03/16) benazepril HCl (Verified Adverse Reaction, Intermediate, SHAKINESS/ FEELS COLD, 08/03/16) levofloxacin (Verified Adverse Reaction, Intermediate, SHAKINESS /FEELS COLD, 08/03/16) Assessment & Plan Problems: (1) Diarrhea Status: Acute Qualifiers: Diarrhea type: infectious Qualified Codes: A09 - Infectious gastroenteritis and colitis, unspecified Assessment & Plan: full admission and start Rocephin as flouroquinolone allergy. Concern for Salmonella et all with stool studies and probiotic start. Agressive IVF and check labs again at 1100 with lactate. Clear liquids only. (2) Heme positive stool Assessment & Plan: BUN elevated but prerenal. PPI and montitor with hgb at 1100. Hemorrhoids et al. (3) Hypokalemia Status: Acute Assessment & Plan: IV supp (4) Obesity (5) DM2 (diabetes mellitus, type 2) Status: Chronic (6) HTN (hypertension) Status: Chronic Assessment & Plan: hold diuretic and continue other (7) Dyslipidemia Status: Chronic Assessment & Plan: This patient is to be admitted to inpatient services. The patient is medically appropriate and meets medical necessity for inpatient admission in accordance with CMS section 42 C.F.R 412.3. The patient is reasonable expected to be discharged or transferred to a hospital within 96 hours after inpatient admission. I reasonable expect the patient will require inpatient services that span a period of time over two midnights. My rationale for determining inpatient admission necessary is noted below. Additional documentation will be found in the progress note. Treatment plan required inpatient setting; care in an outpatient setting would have threatened the patient's safety or health. Treatment plan required clinical-monitoring, treatments, medications and procedures that required an inpatient setting. Unstable medical condition: clinical signs and symptoms present that were significantly above or below those of normal range for the patient, and were such that further monitoring and evaluation was medically necessary. This is a 76-year-old female presents to the hospital with diarrhea that has been progressing for roughly 48 hours. States that she feels horrible. Has not been able eat or drink anything and keep it down. Does not recall doing anything different from normal. States that her has no symptoms. She denies any specific abdominal pain. States the vomiting and diarrhea started roughly at the same time. Denies fevers. Agree with the above assessment and plan. We will add Flagyl to her antibiotic regimen. If there is no improvement we will obtain a CAT scan to further evaluate for potential colitis. Will continue a clear liquid diet. Will continue her outpatient medications. Continue IV fluids. DWIGHT MOREL MD August 03, 2016 06:24 CAROLE STAUFFER MD August 03, 2016 08:35
--- NOTE | 2016-08-03 06:40 | NUR ---
TRANSPORT PER CART ACCOMPANIED BY RN TO RM 140. TOLERATED ACTIVITY WELL. STOOD TO TRANSFER. SOA WITH ACTIVITY. CARE ASSUMED BY DONATO DEGROOT
[2016-08-03] MEDS ORDERED: PANTOPRAZOLE 40 MG TABLET PO ONE (06:45)
[2016-08-03] MEDS: NS KCL 20 MEQ 1,000 ML IV SCH ×4 (07:26→23:51)
[2016-08-03 08:31] LABS: BLOOD, URINE 1+ (NEGATIVE); COLOR,URINE YELLOW (YELLOW); LEUKOCYTE ESTERASE ,URINE NEGATIVE (NEGATIVE); NITRITE,URINE POSITIVE (NEGATIVE); UROBILINOGEN,URINE 0.2 EU/DL (NORMAL)
--- NOTE | 2016-08-03 08:31 | DI ---
EXAM: KUB W/UPRIGHT DATE: 08/03/2016 4:52 AM ENCOUNTER: Initial INDICATION: ITS.REASON: abd pain COMPARISON: 07/17/2010 Technique: Upright and supine AP abdominal radiographs were obtained. Findings: Non-obstructive bowel gas pattern. Mild colonic gas and stool. No intraperitoneal free air. 7 mm left renal stone, not significantly changed from 2010. No acute osseous abnormality identified. Degenerative spondylosis of the visualized spine. The visualized lung bases appear clear. Impression: 1. Mild colonic gas and stool with a nonobstructive bowel gas pattern. 2. 7 mm left renal stone, no significant change since 2010. .
[2016-08-03 08:47] LABS: RBC,URINE 0-1 /HPF (0-3)
[2016-08-03 08:48] LABS: BACTERIA,URINE 3+ (NEGATIVE); HYALINE CASTS, URINE 0-1 /LPF
[2016-08-03] MEDS ORDERED: CEFTRIAXONE 1 G in NORMAL SALINE 100 ML IV SCH (09:00)
[2016-08-03] MEDS ORDERED: CEFTRIAXONE I.V. (ER USE ONLY) 1 G in NORMAL SALINE 100 ML IV SCH (09:00)
[2016-08-03] MEDS ORDERED: AZITHROMYCIN 500 MG in NORMAL SALINE 250 ML IV SCH (09:30)
[2016-08-03] MEDS: DILTIAZEM CD 360 MG PO SCH (09:41)
[2016-08-03] MEDS: LACTOBACILLUS (15B cfu) CAPSULE PO SCH ×2 (09:42→18:34)
[2016-08-03 11:24] LABS: HGB - HEMOGLOBIN 14.5 GM/DL (12-16)
[2016-08-03 11:34] LABS: LACTATE - LACTIC ACID 1.3 MMOL/L (0.6-2.2)
[2016-08-03 11:37] LABS: ANION GAP 15 MEQ/L (5-15); BUN/CREATININE RATIO 19 RATIO (6-26); CALCIUM 9.1 MG/DL (8.4-10.2); CHLORIDE 103 MEQ/L (98-107); CO2 - CARBON DIOXIDE 24 MEQ/L (22-30); CREATININE 1.1 MG/DL (0.7-1.2); GLOMERULAR FILTRATION RATE 48; GLUCOSE 167 MG/DL (65-110); MAGNESIUM 1.7 MG/DL (1.6-2.3); POTASSIUM 3.1 MEQ/L (3.6-5); SODIUM 142 MEQ/L (134-144)
[2016-08-03] MEDS ORDERED: PNEUMOCOCCAL VAC. ADMIN. CHARGE INJ ONE (15:00)
[2016-08-03] MEDS ORDERED: PNEUMOCOCCAL 13 VACCINE 0.5 ML SYRINGE IM ONE (15:00)
[2016-08-03] MEDS ORDERED: BIOT1CAP3 (18:41)
--- NOTE | 2016-08-03 19:20 | NUR ---
SHIFT SUMMARY PT ALERT AND ORIENTED X3. PT ON RA, DENIES SOA. PT DENIES PAIN, DENIES N/V AT THIS TIME. UP WITH STAND BY ASSIST, STEADY ON FEET. IVF INFUSING ORDERED INTO RIGHT HAND. ADEQUATE URINE OUTPUT, MULTIPLE BMs THIS SHIFT. PT TOLERATED CLEAR LIQUID DIET WELL. PT EXPRESSES UNDERSTANDING OF SHIFTING WEIGHT TO PREVENT SKIN BREAKDOWN, FREQUENTLY REPOSITIONS SELF IN BED. BARRIER CREAM AND A&D OINTMENT APPLIED TO BUTTOCKS. INCONTINENT DUE TO DIARRHEA AT TIMES, HOWEVER PT IS ABLE TO MAKE NEEDS KNOWN. BED ALARM ON, CALL LIGHT WITHIN REACH.
--- NOTE | 2016-08-03 20:59 | NUR ---
order pt requested home meds ordered: simvastatin 20mg hs and tramadol 50mg bid prn. dr. jo ordered tramadol 50mg q6h prn and simvastatin 20mg hs to start tonight. no other orders at this time.
[2016-08-03] MEDS ORDERED: TRAMADOL 50 MG TABLET PO PRN (21:15)
[2016-08-03] MEDS: SIMVASTATIN 20 MG TABLET PO SCH (21:47)
--- NOTE | 2016-08-03 23:30 | NUR ---
sleep aid pt requesting medication to help her sleep. dr. jo ordered ambien 5mg po hs prn. no other orders at this time.
[2016-08-03] MEDS: ZOLPIDEM 5 MG TABLET PO PRN (23:50)
[2016-08-04] VITALS (8 sets, daily range): BP systolic 127–162; BP diastolic 66–76; PULSE 68–74; RESP 16–22; TEMP 97–98.7; O2SAT 93–97
--- NOTE | 2016-08-04 00:41 | NUR ---
Chart Check 24 hour chart check completed
[2016-08-04] MEDS: NS KCL 20 MEQ 1,000 ML IV SCH ×2 (06:32→15:30)
--- NOTE | 2016-08-04 06:39 | NUR ---
SHIFT SUMMARY PT ALERT AND ORIENTED X3. PT SLEPT OFF AND ON DURING THE NIGHT DUE TO FREQUENT TRIPS TO THE BATHROOM, INCONTINENT AT TIMES. BOWEL MOVEMENTS LOOSE AND GREEN IN COLOR. DENIES N/V/SOA. UP WITH STAND BY ASSIST, STEADY ON FEET. IVF INFUSING ORDERED INTO RIGHT HAND. ADEQUATE URINE OUTPUT. CLEAR LIQUID DIET. PT GIVEN AMBIENT PRN FOR SLEEP LAST NIGHT. CONTACT PRECAUTIONS IN USE. PT ABLE TO REPOSITION SELF IN BED. BGM THIS AM WAS 103. BED LOCKED AND LOW, BED ALARM ON. CALL LIGHT WITHIN REACH. WILL CONTINUE TO MONITOR.
[2016-08-04 09:56] LABS: BASOPHILS # (AUTO) 0.1 T/MM3 (0-0.2); BASOPHILS % (AUTO) 0.8 % (0-2); EOSINOPHILS # (AUTO) 0.1 T/MM3 (0-0.5); EOSINOPHILS % (AUTO) 1.5 % (0-4); HCT - HEMATOCRIT 43.3 % (36-46); HGB - HEMOGLOBIN 14.4 GM/DL (12-16); IMMATURE GRANULOCYTE # (AUTO) 0.01 T/MM3 (0.00-0.03); IMMATURE GRANULOCYTE % (AUTO) 0.2 % (0.0-0.5); LYMPHOCYTES # (AUTO) 1.3 T/MM3 (1-4.8); LYMPHOCYTES % (AUTO) 20.6 % (23-45); MEAN CORPUSCULAR HGB 33.3 UUG (26-34); MEAN CORPUSCULAR HGB CONC(MCHC 33.3 GM/DL (31-37); MEAN CORPUSCULAR VOLUME 100.2 UM3 (80-100); MEAN PLATELET VOLUME 10.6 UM3 (9.4-12.4); MONOCYTES # (AUTO) 0.8 T/MM3 (0-0.8); MONOCYTES % (AUTO) 12.6 % (0-9.0); NEUTROPHILS % (AUTO) 64.3 % (33-66); RED BLOOD COUNT 4.32 M/MM3 (4.00-5.20); WBC - WHITE BLOOD COUNT 6.2 T/MM3 (4.5-11.0)
[2016-08-04] MEDS: LACTOBACILLUS (15B cfu) CAPSULE PO SCH ×2 (09:59→17:52)
[2016-08-04] MEDS: DILTIAZEM CD 360 MG PO SCH (09:59)
[2016-08-04] MEDS: AZITHROMYCIN 500 MG TABLET PO SCH (10:02)
[2016-08-04 10:09] LABS: ANION GAP 12 MEQ/L (5-15); BUN/CREATININE RATIO 12 RATIO (6-26); CALCIUM 8.6 MG/DL (8.4-10.2); CHLORIDE 110 MEQ/L (98-107); CO2 - CARBON DIOXIDE 23 MEQ/L (22-30); CREATININE 0.9 MG/DL (0.7-1.2); GLOMERULAR FILTRATION RATE 61; GLUCOSE 113 MG/DL (65-110); MAGNESIUM 1.8 MG/DL (1.6-2.3); POTASSIUM 3.7 MEQ/L (3.6-5); SODIUM 145 MEQ/L (134-144)
--- NOTE | 2016-08-04 11:45 | PNPDOC ---
Subjective Date DATE: 08/04/16 TIME: 11:44 Subjective Still feeling very weak and having large amounts of diarrhea. Was only able to eat a piece of toast for breakfast. Feels slightly better than admission but not much. Objective Vital Signs Vital signs Vital Signs Date Time Temp Pulse Resp B/P Pulse Ox O2 Delivery O2 Flow Rate FiO2 08/04/16 07:28 71 18 08/04/16 07:21 97.0 158/71 94 Room Air Telemetry Rhythm: Sinus Rhythm Height (Feet): 5 Height (Inches): 2.00 Weight (Kilograms): 87.500 General Comments General - awake alert oriented 3; in no acute distress HEENT - pupils equal and reactive to light and accommodation; extraocular eye movements are intact Neck - supple no JVD Cardiovascular - RRR Lungs - CTAB Abdomen - benign Extremities - no e/c/c Neurological - cranial nerves II through XII grossly intact Laboratory Laboratory Laboratory Tests 08/03/16 04:52 08/03/16 11:05 08/04/16 09:37 Laboratory Tests 08/03/16 04:52 08/03/16 11:05 08/04/16 09:37 Microbiology Microbiology Microbiology Date/Time Source Procedure Growth Status 08/03/16 08:49 Urine, Voided-Not Cc-Midstream Urine Culture - Preliminary Gram Negative Eric Resulted Assessment & Plan Problems: (1) Diarrhea Status: Acute Qualifiers: Diarrhea type: infectious Qualified Codes: A09 - Infectious gastroenteritis and colitis, unspecified Assessment & Plan: Campylobacter. Continue azithromycin. (2) Heme positive stool Status: Resolved Assessment & Plan: BUN elevated but prerenal. PPI and montitor with hgb at 1100. Hemorrhoids et al. (3) Hypokalemia Status: Resolved Assessment & Plan: IV supp (4) Obesity Status: Chronic (5) DM2 (diabetes mellitus, type 2) Status: Chronic (6) HTN (hypertension) Status: Chronic Assessment & Plan: hold diuretic and continue other (7) Dyslipidemia Status: Chronic Code Status Full Code Hospital Course Summary Disclaimer The hospital course summary below is not to be considered part of the above Progress Note. CAROLE STAUFFER MD August 04, 2016 11:45 denies any specific abdominal pain. States the vomiting and diarrhea started roughly at the same time. Denies fevers. Agree with the above assessment and plan. We will add Flagyl to her antibiotic regimen. If there is no improvement we will obtain a CAT scan to further evaluate for potential colitis. Will continue a clear liquid diet. Will continue her outpatient medications. Continue IV fluids. Code Status Full Code Hospital Course Summary Disclaimer The hospital course summary below is not to be considered part of the above Progress Note. CAROLE STAUFFER MD August 04, 2016 11:45
--- NOTE | 2016-08-04 14:19 | NUR ---
CM CM IN TO SEE PT. CM EXPLAINED ROLE AND PROVIDED CONTACT INFORMATION. PT DENIES NEEDS AT THIS TIME AND IS AWARE TO CALL CM SHOULD NEEDS ARISE.
--- NOTE | 2016-08-04 16:22 | NUR ---
CM CM ISSUED CONDITION CODE 44 PER [facility] PT HAS ORIGINAL JIMENEZ, PT HAS NO QUESTIONS. PT IS AWARE TO CONTACT CM SHOULD NEEDS ARISE.
--- NOTE | 2016-08-04 19:20 | NUR ---
CHARTING REVIEWED THIS RN REVIEWED STUDENT CHELSEA DENIS'S CHARTING ON 08/04.
--- NOTE | 2016-08-04 19:34 | NUR ---
Shift summary. VSS. RA. Up w/ standby assist. Diet advanced as tolerated, with solid foods for dinner. IV in right hand with NS 0.9% KCl 20 meq running at 75 mL. Frequent, loose, bright green stools decreased in afternoon evening. Contact precautions for campylobacter.
[2016-08-04] MEDS: SIMVASTATIN 20 MG TABLET PO SCH (22:26)
[2016-08-04] MEDS: ZOLPIDEM 5 MG TABLET PO PRN (22:26)
--- NOTE | 2016-08-04 23:00 | NUR ---
DC IV Pt dislodged IV on the way back from [place], removed completely with catheter intact and dsg applied. Right hand slightly swollen, denies pain. Pt does not want another IV placed. New order rec'd to DC IV/IVF, pts intake is good on reg diet now. Will monitor.
[2016-08-05 00:30] VITALS: BP 132/65; PULSE 70; RESP 16; TEMP 98.7; O2SAT 94
[2016-08-05 04:00] VITALS: BP 146/68; PULSE 73; RESP 16; TEMP 98.6; O2SAT 97
--- NOTE | 2016-08-05 05:42 | NUR ---
Shift Slept well, A/O x3, SBA to [facility], uses call light for assistance. VSS, on RA. No c/o pain.
[2016-08-05 07:56] VITALS: BP 158/67; PULSE 78; RESP 22; TEMP 96.6; O2SAT 96
[2016-08-05 07:58] VITALS: PULSE 78; RESP 22
[2016-08-05] MEDS: DILTIAZEM CD 360 MG PO SCH (08:21)
[2016-08-05] MEDS: AZITHROMYCIN 500 MG TABLET PO SCH (08:21)
[2016-08-05] MEDS: LACTOBACILLUS (15B cfu) CAPSULE PO SCH (08:22)
--- NOTE | 2016-08-05 08:30 | DSPDOC ---
General Date Date DATE: 08/05/16 TIME: 08:27 Attending Physician Tristan Cowan MD Admitting Physician Tristan Cowan MD Consulting Physician Admitting Diagnosis gi bleed. Discharge Diagnosis Campylobacter enteritis Laboratory Laboratory Tests Test 08/03/16 21:08 08/04/16 06:07 08/04/16 09:37 08/04/16 11:12 Glucometer 126mg/dL (65-110) 103mg/dL (65-110) 187mg/dL (65-110) White Blood Count 6.2T/MM3 (4.5-11.0) Red Blood Count 4.32M/MM3 (4.00-5.20) Hemoglobin 14.4GM/DL (12-16) Hematocrit 43.3% (36-46) Mean Corpuscular Volume 100.2UM3 (80-100) Mean Corpuscular Hemoglobin 33.3UUG (26-34) Mean Corpuscular Hemoglobin Concent 33.3GM/DL (31-37) RDW Standard Deviation 46.0FL (36.9-50.2) Platelet Count 162T/MM3 (130-400) Mean Platelet Volume 10.6UM3 (9.4-12.4) Immature Granulocyte % (Auto) 0.2% (0.0-0.5) Neutrophils (%) (Auto) 64.3% (33-66) Lymphocytes (%) (Auto) 20.6% (23-45) Monocytes (%) (Auto) 12.6% (0-9.0) Eosinophils (%) (Auto) 1.5% (0-4) Basophils (%) (Auto) 0.8% (0-2) Absolute Immature Granulocyte (auto 0.01T/MM3 (0.00-0.03) Absolute Neutrophils (auto) 4.0T/MM3 (1.8-7.7) Absolute Lymphocytes (auto) 1.3T/MM3 (1-4.8) Absolute Monocytes (auto) 0.8T/MM3 (0-0.8) Absolute Eosinophils (auto) 0.1T/MM3 (0-0.5) Absolute Basophils (auto) 0.1T/MM3 (0-0.2) Turbidity < 20 (0-20) Sodium Level 145MEQ/L (134-144) Potassium Level 3.7MEQ/L (3.6-5) Chloride Level 110MEQ/L (98-107) Carbon Dioxide Level 23MEQ/L (22-30) Anion Gap 12MEQ/L (5-15) Blood Urea Nitrogen 11.0MG/DL (7-17) Creatinine 0.9MG/DL (0.7-1.2) Glomerular Filtration Rate Calc 61 BUN/Creatinine Ratio 12RATIO (6-26) Glucose Level 113MG/DL (65-110) Calculated Osmolality 279MOSM/KG (261-280) Calcium Level 8.6MG/DL (8.4-10.2) Magnesium Level 1.8MG/DL (1.6-2.3) Icterus Index < 2 (0-7) Chemistry Specimen Hemolysis < 15 (0-25) Test 08/04/16 17:08 08/04/16 20:58 08/05/16 05:51 Glucometer 123mg/dL (65-110) 93mg/dL (65-110) 98mg/dL (65-110) Microbiology Microbiology Date/Time Source Procedure Growth Status 08/03/16 08:49 Urine, Voided-Not Cc-Midstream Urine Culture - Preliminary Gram Negative Eric Resulted History of Present Illness Please note that the patient was seen via telemedicine with nursing assistance on 08/03/2016. Mrs. Sandhu is a very pleasant 76yo woman with h/o HTN, DM2 diet controlled, dyslipidemia, hyst, but no CAD or CVAs who lives independently with her and had onset of diarrheal illness 07/31/2016. Emesis once with stools q2 hours with dark stool now but also took some pepto bismol and has a h/o hemorrhoids. Abd pain, crampy, with improved somewhat now. No fevers or chills, but progressively weak and cannot effectively walk with nearly passing out in the ED. has eaten the same things. No recent medication changes or antibiotics. No ENT symptoms, sob or cough. Hospital Course This is a 76-year-old female who was admitted to the hospital with acute onset of abdominal pain and diarrhea. She became very dehydrated and orthostatic from all the diarrhea. Stool culture came back positive for Campylobacter and she was given 3 doses of azithromycin 500 mg during her hospitalization. At time of discharge she is back to baseline self. All electrolytes were replaced. She is tolerating regular diet at time of discharge. Her orthostasis has resolved with IV fluids. Problems: (1) Diarrhea Status: Resolved Assessment & Plan: Campylobacter. Continue azithromycin. (2) Heme positive stool Status: Resolved Assessment & Plan: BUN elevated but prerenal. PPI and montitor with hgb at 1100. Hemorrhoids et al. (3) Hypokalemia Status: Resolved Assessment & Plan: IV supp (4) Obesity Status: Chronic (5) DM2 (diabetes mellitus, type 2) Status: Chronic (6) HTN (hypertension) Status: Chronic Assessment & Plan: hold diuretic and continue other (7) Dyslipidemia Status: Chronic Code Status Full Code Home Meds Reported Medications Biotin (Biotin) Unknown Strength Capsule 08/03/16 [place]-3 Fatty Acids (Fish Oil) Unknown Strength Capsule, PO DAILY 05/20/15 Simvastatin (Simvastatin) 20 Mg Tablet, 20 MG PO HS 05/20/15 Sertraline (Sertraline) 50 Mg Tablet, 50 MG PO DAILY 05/20/15 Metoprolol Tartrate (Metoprolol Tartrate) 50 Mg Tablet, 50 MG PO BID 05/20/15 Diltiazem Hcl (Cartia Xt) 180 Mg Cap.sr.24h, 360 MG PO DAILY 05/30/10 Tramadol Hcl (Tramadol Hcl) 50 Mg Tablet, 50 MG PO BID Y for PAIN 05/29/10 Fa/Mv,Ca,Fe,Min/Lycopene/Lut (Centrum Tablet) 1 Tab Tablet, 1 TAB PO DAILY 05/07/09 Triamterene/Hydrochlorothiazid (Triamterene-Hctz 37.5-25 Tb) 1 Tab Tablet, 1 TAB PO DAILY 05/07/09 Discontinued Scripts Neomycin/Polymyxin B Sulf/Hc (Wtqpqniw-Pouvxifws-Qq Ear Susp) 10 Ml Drops.susp, 4 DROP OT TID for 7 Days, #10 ML [address] Avery Castrejon [employer] [facility] [phone] Prov:ERIC LARA APRN 02/26/16 Face to Face Encounter I met with patient on the day of dismissal and discussed follow up appointments , medications, and safety plan. Discharge Disposition Home CAROLE STAUFFER MD August 05, 2016 08:30
[2016-08-05] MEDS ORDERED: CEPH-583 PO (08:46)
--- NOTE | 2016-08-05 11:24 | NUR ---
Charting reviewed. This RN has reviewed student Caridad Sims's charting for 08/05.
--- NOTE | 2016-08-05 11:27 | NUR ---
Discharge note. VSS. RA. Discharge instructions explained, and patient verbalized understanding. Patient instructed to start antibiotic at lunch today. Patient transported by wheelchair with belongings to entrance. is driving patient home.
== END 2016-08-05 11:16 | disposition home or self-care (01) ==
LOC: ED 04:27 → EDHOLD 06:01 → OBSVTOIN 06:15 → INTOOBSV 06:15 → MED 06:40 → EDHOLD 06:40
PROVIDERS: ADMIT Hospitalist; ATTEND Hospitalist
DX: A04.5 Campylobacter enteritis (principal); E87.6 Hypokalemia; E11.9 Type 2 diabetes mellitus without complications; E66.9 Obesity, unspecified; Z68.35 Body mass index [BMI] 35.0-35.9, adult; I10 Essential (primary) hypertension; E78.5 Hyperlipidemia, unspecified; F32.9 Major depressive disorder, single episode, unspecified; Z79.82 Long term (current) use of aspirin; Z79.899 Other long term (current) drug therapy; Z23 Encounter for immunization
CPT/HCPCS: 36415; 74020; 80048; 80053; 81001; 82272; 82948; 83605; 83690; 83735; 84484; 85018; 85025; 87077; 87086; 87186; 87507; 89055; 90732; 93005; 96361; 96365; 96366; 96372; 99284; A9270; G0009; G0378; J0456; J0696; J7030; J7050; 99218